=== PATIENT | female | born 1985 | race American Indian/Alaskan Native ===

== ENCOUNTER 2017-02-03 01:18 | Emergency (ER) | payer OTHER ==
[2017-02-03 02:48] LABS: Basophils % (Auto) 0.1 % (0.0-1.8); Eosinophils % (Auto) 0.7 % (0.0-4.3); Hematocrit 36.6 % (30.3-42.9); Hemoglobin 12.3 gm/dl (10.1-14.3); Mean Corpuscular HGB Conc 34 % (30-34); Mean Corpuscular Hemoglobin 31 pg (28-32); Mean Corpuscular Volume 93 fl (79-97); Platelet Count 350 K/mm3 (140-440); Red Blood Count 3.95 M/mm3 (3.65-5.03); Red Cell Distribution Width 12.6 % (13.2-15.2); White Blood Count 7.6 K/mm3 (4.5-11.0)
[2017-02-03 03:06] LABS: Anion Gap 18 mmol/L; Blood Urea Nitrogen 10 mg/dL (7-17); Calcium 9.3 mg/dL (8.4-10.2); Carbon Dioxide 25 mmol/L (22-30); Chloride 100.9 mmol/L (98-107); Glucose 107 mg/dL (65-100); Potassium 4.1 mmol/L (3.6-5.0); Sodium 140 mmol/L (137-145)
--- NOTE | 2017-02-03 09:19 | Emergency Department Report ---
ED Chest Pain HPI - General Chief Complaint: Chest Pain Stated Complaint: CP/ABD PAIN Time Seen by Provider: 02/03/17 08:44 Source: patient Mode of arrival: Ambulatory Limitations: No Limitations - History of Present Illness Initial Comments: 31 years old female complaining of epigastric pain as being going on for 1 year on and off. Patient related her pain mostly to the food that she eats and she stated the pain is usually worse at night. She did not seek any medical attention for it before. Patient denied any history of fever cough congestion nausea or vomiting or diarrhea. MD Complaint: chest pain Onset: during rest Quality: sharp - Related Data Previous Rx's Medication Instructions Recorded Last Taken Type Esomeprazole Magnesium [NexIUM] 40 mg PO QDAY #30 capsule. 02/03/17 Unknown Rx Allergies Allergy/AdvReac Type Severity Reaction Status Date / Time No Known Allergies Allergy Unverified 02/03/17 01:50 Heart Score - HEART Score History: Slightly suspicious EKG: Normal Age: < 45 Risk factors: No known risk factors Troponin: < normal limit HEART Score: 0 - Critical Actions Critical Actions: 0-3 pts:0.9-1.7%risk of adverse cardiac event.Candidate for discharge ED Review of Systems ROS: Stated complaint: CP/ABD PAIN Other details as noted in HPI Comment: All other systems reviewed and negative Constitutional: denies: chills, fever Cardiovascular: denies: chest pain, palpitations Gastrointestinal: abdominal pain. denies: nausea, vomiting ED Past Medical Hx - Past Medical History Previous Medical History?: No - Surgical History Past Surgical History?: No - Social History Smoking Status: Never Smoker Substance Use Type: None - Medications Home Medications: Home Medications Medication Instructions Recorded Confirmed Last Taken Type Esomeprazole Magnesium [NexIUM] 40 mg PO QDAY #30 capsule. 02/03/17 Unknown Rx ED Physical Exam - General Limitations: No Limitations General appearance: alert, in no apparent distress - ENT ENT exam: Present: normal exam - Respiratory Respiratory exam: Present: normal lung sounds bilaterally - Cardiovascular Cardiovascular Exam: Present: regular rate, normal rhythm, normal heart sounds - GI/Abdominal GI/Abdominal exam: Present: soft, tenderness (epigastric). Absent: distended, guarding, rebound, rigid, normal bowel sounds, diminished bowel sounds, organomegaly, mass, bruit, pulsatile mass, hernia - Back Exam Back exam: Present: normal inspection - Neurological Exam Neurological exam: Present: alert, oriented X3, CN II-XII intact - Skin Skin exam: Present: warm, normal color ED Course Vital Signs 02/03/17 02/03/17 02/03/17 01:46 05:35 05:45 Temperature 98.7 F Pulse Rate 105 H 77 82 Respiratory 17 26 H Rate Blood Pressure 122/73 120/67 O2 Sat by Pulse 18 L 98 98 Oximetry 02/03/17 02/03/17 02/03/17 05:51 05:52 05:53 Temperature 98.2 F Pulse Rate 75 79 Respiratory 25 H 23 Rate Blood Pressure 120/67 120/67 O2 Sat by Pulse 97 98 Oximetry 02/03/17 02/03/17 02/03/17 05:55 05:57 05:59 Temperature Pulse Rate 91 H 83 77 Respiratory 21 22 23 Rate Blood Pressure 120/67 120/67 120/67 O2 Sat by Pulse 98 97 98 Oximetry 02/03/17 02/03/17 02/03/17 06:00 06:01 06:03 Temperature Pulse Rate 80 78 76 Respiratory 19 23 23 Rate Blood Pressure 121/78 121/78 121/78 O2 Sat by Pulse 99 98 98 Oximetry 02/03/17 02/03/17 02/03/17 06:05 06:07 06:09 Temperature Pulse Rate 78 73 76 Respiratory 23 22 21 Rate Blood Pressure 121/78 121/78 121/78 O2 Sat by Pulse 98 98 98 Oximetry 02/03/17 02/03/17 02/03/17 06:11 06:13 06:15 Temperature Pulse Rate 74 70 74 Respiratory 21 10 L 12 Rate Blood Pressure 121/78 121/78 124/74 O2 Sat by Pulse 99 99 99 Oximetry 02/03/17 02/03/17 02/03/17 06:17 06:19 06:21 Temperature Pulse Rate 70 69 69 Respiratory 24 22 23 Rate Blood Pressure 124/74 124/74 124/74 O2 Sat by Pulse 99 99 99 Oximetry 02/03/17 02/03/17 02/03/17 06:23 06:25 06:27 Temperature Pulse Rate 64 70 66 Respiratory 23 23 22 Rate Blood Pressure 124/74 124/74 124/74 O2 Sat by Pulse 99 99 99 Oximetry 02/03/17 02/03/17 02/03/17 06:29 06:30 06:31 Temperature Pulse Rate 69 72 70 Respiratory 23 22 24 Rate Blood Pressure 124/74 129/76 129/76 O2 Sat by Pulse 99 99 99 Oximetry 02/03/17 02/03/17 02/03/17 06:33 06:35 06:37 Temperature Pulse Rate 88 80 98 H Respiratory 19 24 25 H Rate Blood Pressure 129/76 129/76 129/76 O2 Sat by Pulse 99 97 98 Oximetry 02/03/17 02/03/17 02/03/17 06:39 06:41 06:43 Temperature Pulse Rate 74 68 71 Respiratory 22 24 25 H Rate Blood Pressure 129/76 129/76 129/76 O2 Sat by Pulse 99 99 98 Oximetry 02/03/17 02/03/17 02/03/17 06:45 06:47 06:49 Temperature Pulse Rate 77 78 77 Respiratory 22 24 24 Rate Blood Pressure 112/62 112/62 112/62 O2 Sat by Pulse 100 98 98 Oximetry 02/03/17 02/03/17 02/03/17 06:51 06:53 06:55 Temperature Pulse Rate 72 69 77 Respiratory 21 22 24 Rate Blood Pressure 112/62 112/62 112/62 O2 Sat by Pulse 99 98 99 Oximetry 02/03/17 02/03/17 02/03/17 06:57 06:59 07:00 Temperature Pulse Rate 73 74 81 Respiratory 23 22 20 Rate Blood Pressure 112/62 112/62 118/66 O2 Sat by Pulse 98 98 99 Oximetry 02/03/17 02/03/17 02/03/17 07:01 07:03 07:05 Temperature Pulse Rate 71 94 H 68 Respiratory 20 21 23 Rate Blood Pressure 118/66 118/66 118/66 O2 Sat by Pulse 99 98 99 Oximetry 02/03/17 02/03/17 02/03/17 07:07 07:09 07:11 Temperature Pulse Rate 73 73 82 Respiratory 23 24 21 Rate Blood Pressure 118/66 118/66 118/66 O2 Sat by Pulse 98 98 99 Oximetry 02/03/17 02/03/17 02/03/17 07:13 07:15 07:17 Temperature Pulse Rate 81 83 79 Respiratory 23 26 H 21 Rate Blood Pressure 118/66 126/70 126/70 O2 Sat by Pulse 99 100 99 Oximetry 02/03/17 02/03/17 07:19 07:21 Temperature Pulse Rate 82 78 Respiratory 14 21 Rate Blood Pressure 126/70 126/70 O2 Sat by Pulse 99 99 Oximetry ED Medical Decision Making - Lab Data Result diagrams: 02/03/17 02:07 02/03/17 02:07 Critical care attestation.: If time is entered above; I have spent that time in minutes in the direct care of this critically ill patient, excluding procedure time. ED Disposition Clinical Impression: Chest pain, Gastritis, GERD (gastroesophageal reflux disease) Disposition: DC- TO HOME OR SELFCARE Is pt being admited?: No Condition: Stable Instructions: Chest Pain (ED), Gastroesophageal Reflux Disease (ED), Diet for Ulcers and Gastritis (ED) Referrals: PRIMARY CARE, [Primary Care Provider] - 3-5 Days
--- NOTE | 2017-02-03 09:21 | XRay Report ---
Single view chest: History: Chest pain. Findings: Normal cardiomediastinal silhouette. Trachea is midline. No consolidation, pneumothorax or pleural effusion. Impression: No acute cardiopulmonary findings.
[2017-02-03 09:45] VITALS: BP 116/68
== END 2017-02-03 09:45 | disposition home or self-care (01) ==
LOC: ED 01:18
DX: K29.60 Other gastritis without bleeding (principal); K21.9 Gastro-esophageal reflux disease without esophagitis
CPT/HCPCS: 36415; 71020; 80048; 81025; 84484; 85025; 93005; 93010; 99284